=== PATIENT | male | born 1985 | race Caucasian/White ===

== ENCOUNTER 2018-06-10 02:14 | Emergency (ER) | payer OTHER ==
[~2018-06-10] VITALS: Ht 180.3 cm; Wt 52.2 kg
== END 2018-06-10 10:46 | disposition home or self-care (01) ==
LOC: ED 02:14
DX: F32.9 Major depressive disorder, single episode, unspecified (principal)
CPT/HCPCS: 80053; 80176; 81001; 84443; 85025; 99284; G0480

== ENCOUNTER 2019-12-18 21:24 | Inpatient (IN) | payer OTHER ==
[~2019-12-18] VITALS: Ht 180.3 cm; Wt 50.4 kg
--- NOTE | 2019-12-18 23:54 | NUR ---
PT INITIAL ASSESSMENT IS COMPLETED AT THIS TIME. PT DENIES ANY SUICIDAL IDEATIONS AT THIS MOMENT. AFFECT IS FLAT. PT SKIN IS PALE AND COOL, MOTTLING NOTED IN EXTREMITIES. WARM BLANKETS APPLIED. PT STATES IV IS BOTHERING HIM. AREA HAS NO NOTED REDNESS OR SWELLING. FLUSHES AND DRAWS BACK BLOOD WELL. NO VISIBLE REDNESS IN THROAT OR MOUTH, ALTHOUGH PT COMPLAINS OF MILD BURN IN CHEST AND THROAT. HE RATES THE PAIN 4/10 AND DENIES NEED FOR PAIN MEDICAITION AT THIS TIME. PLAN IN PLACE FOR [facility] TO COME IN TO EVALUATE PATIENT. METAL NUMERICAL TOOL PROGRAMMER IN ROOM PROVIDING ONE TO ONE SUPERVISION.
--- NOTE | 2019-12-19 01:00 | NUR ---
PT RESTING WITH EYES CLOSED. BREATHING EVEN AND UNLABORED RR= 17. REMAINS ON SUICIDE PRECAUTIONS.
--- NOTE | 2019-12-19 01:30 | NUR ---
PT HAS INCREASED ORAL SECRETIONS. ORAL SUCTIONING PERFORMED. COMPLAINS THAT PAIN IN THROAT AND CHEST REMAINS AT 5/10
--- NOTE | 2019-12-19 02:05 | NUR ---
PT RESTING. HEART RATE IN THE MID 60S. RR=18. OXYGEN SATURATIONS AT 98 PERCENT ON ROOM AIR. REMAINS ON SUICIDE PRECAUTIONS WITH 1:1 SUPERVISION.
--- NOTE | 2019-12-19 02:19 | NUR ---
HOWIE FROM [facility] IN AT THIS TIME TO EVALUATE PATIENT.
--- NOTE | 2019-12-19 02:44 | NUR ---
PT REPORTED TO Qonf HOWIE THAT HE WAS IN TOO MUCH PAIN AND DISCOMFORT TO BE INTERVIEWED AT THIS TIME. PRN PAIN MEDICATION GIVEN (SEE EMAR).
--- NOTE | 2019-12-19 03:30 | NUR ---
PT REPORTS HIS PAIN HAS DECREASED TO A 4/10. APPEARS MORE COMFORTABLE. BREATHING EVEN AND UNLABORED. NO STATED NEEDS AT THIS TIME.
--- NOTE | 2019-12-19 04:30 | NUR ---
ASSESSMENT COMPLETED. PT DENIES NEED FOR PAIN MEDICATION. IV FLUIDS CONTINUE TO INFUSE. NO REDNESS OR IRRIATION AT INFUSION SITE. PT DENIES ANY FURTHER NEEDS AT THIS TIME. REMAINS ON 1:1 SUICIDE PRECAUTIONS.
--- NOTE | 2019-12-19 05:28 | NUR ---
PT ATTEMPTED TO VOID BUT WAS UNSUCCESSFUL. BLADDER SCAN SHOWED 267 MLS OF URINE IN BLADDER. WILL REASSESS IN AN HOUR.
--- NOTE | 2019-12-19 05:30 | NUR ---
PT APPEARS MORE ALERT AND ORIENTED THAN EARLIER IN THE SHIFT, ANSWERING QUESTIONS IN FULL SENTENCES. DENIES NEED FOR PAIN MEDICATION AT THIS TIME.
--- NOTE | 2019-12-19 07:15 | NUR ---
THIS RN 1:1 WITH PT. PT LYING ON BACK IN BED APPEARS TO BE SLEEPING. EYES CLOSED, RESP EVEN AND UNLABORED.
--- NOTE | 2019-12-19 07:37 | NUR ---
PATIENT RESTING IN BED UPON INITIAL ASSESSMENT. PT STATES HE FEELS A LITTLE BETTER OVERALL. PT REMAINS WITH 1:1 STAFF IN ROOM AT ALL TIMES DUE TO SUICIDE RISK. RN DELIVERY HERE TO TAKE PATIENT FOR EGD. PT UP TO BATHROOM TO VOID FIRST. PT WITHDRAWN. STEADY ON FEET. LR HANGING ON STRAIGHT TUBING. CONTINUE TO MONITOR.
--- NOTE | 2019-12-19 07:45 | NUR ---
PATIENT TAKEN FOR EGD AT 0740.
--- NOTE | 2019-12-19 08:29 | NUR ---
PATIENT BROUGHT BACK TO ROOM AND ABLE TO SCOOT SELF ONTO CCU BED. PT REMAINS ON ROOM AIR. PT STATES HE IS HAVING PAIN AT THIS TIME. IVF TO BE SWITCHE TO D5 LR WITH 20 KCL. PATIENT WILL REMAIN A 1:1 AT THIS TIME.
--- NOTE | 2019-12-19 09:16 | NUR ---
PATIENT RESTING AT THIS TIME. PATIENT STATES HE IS HAVING PAIN IN HIS THROAT BUT DENIES WANTING ANY PAIN MEDICATION AT THIS TIME. DR. DO APPROVED PATIENT TO HAVE CLEAR LIQUIDS. PT INFORMED OF THIS BUT DENIES WANTING ANYTHIGN TO DRINK AT THIS TIME. CONTINUE TO MONITOR. PT REMAINS A 1:1 UNTIL [facility] RE-EVALUATES PATIENT.
--- NOTE | 2019-12-19 09:18 | NUR ---
DR. DAMON IN ROOM TO SEE PATIENT AT THIS TIME.
--- NOTE | 2019-12-19 09:37 | NUR ---
PHONE CALL APPROVED BY DR. DAMON. PT TALKING ON THE PHONE WITH HIS MOM. THIS RN PRESENT.
--- NOTE | 2019-12-19 09:46 | CONS ---
[facility] [address], [place] [address] Signed DATE OF CONSULTATION: 12/18/2019 TIME: 10:30 p.m. CONSULTING PHYSICIAN: Jose Antonio Do MD. REQUESTING PHYSICIAN: Dr. Elise. PROBLEM: Caustic ingestion, suicide attempt. HISTORY OF PRESENT ILLNESS: This 34-year-old white man presented to the emergency room having reported to swallow at least one glass of "draino" approximately 9:00 p.m. It is now 10:30 p.m. His initial evaluation by Dr. Elise showed him to have minimal hypersalivation, no sign of respiratory distress and no significant pain. It is anticipated he would be admitted by Dr. Shannon for further monitoring and consideration was made for endoscopy within 12 hours of ingestion. At present, the patient denies any shortness of breath or chest pain. He has mild epigastric pain. He was noted to have regurgitated the lye initially. Initial measure in the emergency room apparently included the ingestion of a glass of milk with gargling and spit out. The patient does have prior psychologic disturbance with attempted suicide from what he briefly tells me; this was not locally, but rather in [place]. It was not a caustic ingestion from what I gather. He said to have had admission to the hospital about 2 years ago for suicidal ideation. Review of the archived electronic record of that admission was ultimately accomplished and noted to be June 10, 2018, where he had felt suicidal. He was described at times having a "severe depressive episode." At that time, he suggested he had an inclination to buy a cleaning agent and drink it. He had been newly transplanted from [place] at that time. At that time, he had reported "lack of purpose." He currently lives with his mother. He does not work. He was evaluated by [facility] counselors and discharged with psychiatric followup. He is on no psychiatric medications. Electronically Signed By: JOSE ANTONIO DO MD 12/19/19 0946 PATIENT NAME: SANAM TELLEZ CONSULTATION DATE OF : 87 REPORT #: [id number] PHYSICIAN: JOSE ANTONIO DO MD PCP: NO PRIMARY CARE PHYSICIAN REPORT IS CONFIDENTIAL AND NOT TO BE RELEASED WITHOUT AUTHORIZATION [facility] [address] [place] [id number] Signed His evaluation has included a chest x-ray which shows no sign of pneumomediastinum or any evidence of infiltrate or pneumonitis. His white count is noted to be 9.1, hematocrit is 42.2, platelets 154,000. Chem profile is essentially normal, creatinine of 0.82. Liver enzymes are normal. TSH 0.44. Toxicology shows no illicit drugs and alcohol was negative. Urinalysis was normal. PHYSICAL EXAMINATION: GENERAL: This is a very thin white man with long hair. He has a bit of a mustache and minimal see. He does not appear agitated or psychotic at this time. HEENT: Trachea is midline. There is no crepitus. He appears not to have any regurgitation or hypersalivation. He has a significant pectus excavatum. CHEST: Shows normal respiratory excursion without cough. Chest x-ray was reviewed, completely normal. He has significant pectus excavatum. ABDOMEN: Mildly tender in the epigastric area, but not much and he does not have abdominal distention. EXTREMITIES: Show no clubbing, cyanosis, or edema. VITAL SIGNS: At presentation, pulse of 60, respiratory rate of 25, blood pressure 114/73, temperature is 97.4. ASSESSMENT: The patient is said to have a caustic ingestion of single glass of "Draino." Poison Control was already called prior to my evaluation. Review of recent treatment protocols commit to a plan of observation, maintenance of n.p.o. status, IV fluid administration and endoscopy within 12 hours of ingestion to assess the extent of injury. At present, he has no airway problems, hypersalivation or other issues. He has been given milk apparently to swish and spit as a comfort measure for his oropharynx and so on. I have conferred with Dr. Shannon, who anticipates his admission to the intensive care unit for further monitoring in particular regarding his airway and so forth. The extent of his caustic ingestion can be assessed by endoscopy. He has potential for significant progression of problems, but at present appears to be quite stable. The ongoing liquefactive necrosis that may occur in mucosa and deeper layers of the esophagus and even the stomach and duodenum are notable. It is unclear how much he regurgitated or even actually swallowed of the agent. That remains to be seen. I discussed with him in the presence of Dr. Shannon the risks of bleeding, infection, and perforation related to upper endoscopy. We will use intravenous sedation provided by the lye bath operator so as to minimize movement and provide for safe endoscopy at approximately 8:00 a.m. tomorrow. Electronically Signed By: JOSE ANTONIO DO MD 12/19/19 0946 PATIENT NAME: SANAM TELLEZ CONSULTATION DATE OF : 87 REPORT #: [id number] PHYSICIAN: JOSE ANTONIO DO MD PCP: NO PRIMARY CARE PHYSICIAN REPORT IS CONFIDENTIAL AND NOT TO BE RELEASED WITHOUT AUTHORIZATION [facility] [address] [place] [address] Signed Jose Antonio Do MD /YUDIL /[id number] cc: Dr. Arik Shannon MD Copies: SIMON SHANNON MD ~ Electronically Signed By: JOSE ANTONIO DO MD 12/19/19 0946 PATIENT NAME: SANAM TELLEZ CONSULTATION DATE OF : 87 REPORT #: [id number] PHYSICIAN: JOSE ANTONIO DO MD PCP: NO PRIMARY CARE PHYSICIAN REPORT IS CONFIDENTIAL AND NOT TO BE RELEASED WITHOUT AUTHORIZATION
--- NOTE | 2019-12-19 09:57 | NUR ---
PATIENT DENIES WANTING ANYTHING TO EAT OR DRINK - ALLOWED CLEAR LIQUIDS AT THIS TIME. PT STATES HE DOESN'T EAT MEAT. PT DENIES WANTING TO WATCH TV HE DOESN'T HAVE HIS GLASSES AND CANNOT SEE VERY FAR WITHOUT THEM. PT INSTRUCTED THAT HIS MOTHER COULD BRING THEM IN TO THE VACCINE SPECIALIST IF HE WANTED THEM. PT STATES HE DID GET A HOLD OF HIS MOTHER AND "SHE'S FINE" WAS HIS RESPONSE WHEN ASKING PATIENT HOW HIS MOTHER SEEMED AFTER HEARING THE NEWS OF HIS HOSPITALIZATION. PT AGAIN REMAINS FAIRLY WITHDRAWN FROM VERY MUCH INTERACTION OR SOCIALIZATION. NURSING STAFF REMAINS 1:1 UNTIL [facility] CONSULT. CONTINUE TO MONITOR CLOSELY.
--- NOTE | 2019-12-19 10:12 | NUR ---
PATIENT ASKS IF HE CAN GET UP TO WASH HIS HANDS AT THIS TIME. PT UP AND AMBULATES TO SINK IN ROOM TO WASH HIS HANDS.
--- NOTE | 2019-12-19 11:24 | NUR ---
PATIENT SLEEPING AT THIS TIME. HR IN THE 50s. SP02 97% ON ROOM AIR. PT REMAINS A 1:1 DIRECT VISUALIZATION AT THIS TIME.
--- NOTE | 2019-12-19 12:00 | NUR ---
PATIENT CONTINUES TO REST AT THIS TIME AND APPEARS IN NO ACUTE DISTRESS. WHEN PATIENT AWAKE NEXT, WILL REEVALUATE IF PATIENT WOULD LIKE ANY CLEAR LIQUIDS.
--- NOTE | 2019-12-19 12:28 | NUR ---
PO[facility] CONTROL CALLED TO CHECK UP ON PATIENT. NO FURTHER RECOMMENDATIONS MADE AT THIS TIME. PT RESTING. CLEAR LIQUID TRAY ORDERED FOR PATIENT AND BROUGHT INTO ROOM.
--- NOTE | 2019-12-19 12:35 | NUR ---
PATIENT UP TO BATHROOM TO VOID. PT WASHES HANDS BEFORE AND AFTER HE VOIDS.
--- NOTE | 2019-12-19 12:40 | NUR ---
PATIENT REPORTS THAT THE JUICE AND WATER IS "FINE" AND DENIES IT BURNING HIS THROAT AT ALL. PT NOW BACK IN BED.
--- NOTE | 2019-12-19 13:03 | NUR ---
DR. DAMON IN ROOM TO TALK WITH PATIENT. PATIENT WILL MOVE OVER TO ROOM 111 WITHOUT TELEMETRY. PT DENIES FURTHER NEEDS AT THIS TIME.
--- NOTE | 2019-12-19 13:09 | NUR ---
PATIENT ASKING WHEN HE WILL BE MOVING TO ANOTHER ROOM. PT INFORMED THAT THIS WILL BE IN THE NEXT 15-20 MINUTES. PT DENIES ANY FURTHER NEEDS.
--- NOTE | 2019-12-19 14:05 | NUR ---
PT TRANSFERRED TO MED\SURG, AMB WITH THIS RN PRESENT AT 1330. PT REQUESTED TO GET IN SHOWER. PT SHOWERED WITH MINIMAL ASSIST. BACK TO BED NOW, REFUSED OFFER FOR DRINK OF JUICE OR WATER OR OTHER NEEDS AT THIS TIME. GIVEN WARM BLANKET. CALL LIGHT WITHIN REACH. BED ALARM ON. PT REMAINS 1:1 OBSERVATION FOR SUICIDE PRECAUTION. THIS RN AT BEDSIDE.
--- NOTE | 2019-12-19 14:24 | NUR ---
PT LYING IN BED APPEARS TO BE SLEEPING AT THIS TIME. EYES CLOSED, RESP EVEN AND UNLABORED.
--- NOTE | 2019-12-19 15:12 | NUR ---
PT AWOKE FROM REST, NOTICED HIM PLAYING WITH IV TUBING. ASKED PT IF HE NEEDED ANYTHING AND HE STATED THAT HE NEEDED TO USE THE RESTROOM. PT SBA TO RESTROOM, WASHED HIS HANDS BEFORE VOIDING AND THEN AGAIN TWICE AFTER USING THE URINAL. PT BACK TO BED, LYING IN BED QUIETLY. DOESN'T CONVERSE MUCH, VERY FLAT AFFECT. PT REMAINS 1:1 FOR SUICIDE PRECAUTIONS.
--- NOTE | 2019-12-19 16:22 | NUR ---
PT APPEARS TO BE SLEEPING. EYES CLOSED, RESP EVEN UNLABORED. BED ALARM ON. 1:1 STATUS.
--- NOTE | 2019-12-19 17:29 | NUR ---
PT LYING QUIETLY AWAKE IN BED. DENIES PAIN OR OTHER NEEDS OR CONCERNS AT THIS TIME. THIS RN 1:1 WITH PT FOR SUICIDE WATCH.
--- NOTE | 2019-12-19 18:06 | NUR ---
PT REQUESTED "SOMETHING FOR A HEADACHE". DENIES WANTING DILAUDID. RECIEVED ORDER FOR PRN TYLENOL FROM DR. DAMON. ADMINISTERED AT THIS TIME. PT HAD NO DIFFICULTY SWALLOWING PILLS AND IS JAILENE CLEAR LIQUIDS WELL. 1:1
--- NOTE | 2019-12-19 19:45 | NUR ---
BEDSIDE REPORT RECEIVED FROM KWAN BELLA. pt RESTING IN BED AWAKE. IVF INFUSING WNL ORDERED. LEVER OPERATOR SHAWNEE IN ROOM FOR 1:1 MONITORING ORDERED.
--- NOTE | 2019-12-19 20:51 | NUR ---
VITALS AND I&OS DONE AND CHARTED, HELPED PT TO THE BATHROOM AND BACK TO BED. BEDSIDE TABLE AND CALL LIGHT IN REACH. PT NEEDS NOTHING AT THIS TIME.
--- NOTE | 2019-12-19 22:04 | NUR ---
SRIDEVI SHAWNEE IN ROOM FOR 1:1 MONITORING. pt ASSESSMENT COMPLETE. ALERT AND ORIENTED TO ALL. DENIES SUICIDAL IDEATIONS "NOT RIGHT NOW". DENIES PAIN AT THIS TIME. IV FLUSHED, INFUSING WNL ORDERED. ENSURE PROVIDED. pt DENIES ADDITIONAL NEEDS. THIS RN IN ROOM FOR 1:1 MONITORING.
--- NOTE | 2019-12-19 22:32 | EKG ---
[facility] [address] [facility] [place] [address] Signed Normal sinus rhythm with sinus arrhythmia Possible Left atrial enlargement Rightward axis Pulmonary disease pattern Incomplete right bundle branch block Nonspecific ST abnormality Abnormal ECG No previous ECGs available Confirmed by SIMON DAMON MD ([id number]) on 12/19/2019 10:32:17 PM Electronically Signed By: SIMON DAMON MD 12/19/192231 PATIENT NAME: SANAM TELLEZ Electrocardiogram DATE OF : 87 PHYSICIAN: SIMON DAMON MD REPORT #: [id number] REPORT IS CONFIDENTIAL AND NOT TO BE RELEASED WITHOUT AUTHORIZATION
--- NOTE | 2019-12-20 02:10 | NUR ---
pt RESTING IN BED WITH EYES CLOSED, IVF INFUSING WNL ORDERED. TARP REPAIRER LILIAN IN ROOM FOR CLOSE 1:1 MONITORING ORDERED.
--- NOTE | 2019-12-20 03:45 | NUR ---
SBA TO RESTROOM FOR VOID AND BACK TO BED. ASSESSMENT COMPLETE. C/O GAXIOLA, DENIES NEED FOR PRN MEDICATION. REQUESTING TO SLEEP. IVF INFUSING WNL ORDERED. 1:1 MONITORING FOR pt SAFETY.
--- NOTE | 2019-12-20 05:48 | NUR ---
pt RESTED WELL THIS SHIFT. 1:1 MONITORING ORDERED THROUGHOUT SHIFT. pt DENIES SUICIDAL IDEATIONS TO RN THIS SHIFT. IVF INFUSING WNL ORDERED. SBA TO RESTROOM, QS VOIDS.
--- NOTE | 2019-12-20 07:40 | NUR ---
RECIEVED BEDSIDE REPORT FROM KHOI BOWENS. PT LYING IN BED WITH EYES CLOSED, RESP EVEN AND UNLABORED. IV INFUSING WNL. PT REMAINS ON 1:1 OBSERVATION FOR SUICIDE WATCH.
--- NOTE | 2019-12-20 08:04 | NUR ---
PT NOTED TO BE AWAKE AND MOVING AROUND IN BED. PT REPORTS HE NEEDS TO USE THE BATHROOM. SBA TO RESTROOM. PT WASHES HIS HANDS MULTIPLE TIMES BOTH BEFORE AND AFTER VOIDING. AMB TO RECLINER, CURRENTLY SITTING UP AWAKE. ASSISTED PT TO ORDER BREAKFAST HE REPORTS HE IS FEELING HUNGRY. DENIES PAIN OR NAUSEA. DENIES SUICIDAL IDEATION OR OTHER CONCERNS AT THIS TIME. PT DRINKING WATER. THIS RN PRESENT AT BEDSIDE FOR 1:1.
--- NOTE | 2019-12-20 08:45 | NUR ---
PT ATE 100% OF BREAKFAST. HAD OATMEAL, MANDARIN ORANGES, YOGURT, MILK, AND JUICE. JAILENE WELL. PT DENIES NAUSEA OR STOMACH PAIN. SITTING UP IN RECLINER. THIS RN AT BEDSIDE.
--- NOTE | 2019-12-20 08:52 | NUR ---
NOTED IV LEAKING. FLUSHES EASILY WITHOUT PAIN. TOOK DOWN DRESSING AND SANITZED SITE WITH ALCOHOL SWABS. REDRESSED SITE WITH OPSITE. NO FURTHER LEAKING NOTED AT THIS TIME.
--- NOTE | 2019-12-20 09:58 | NUR ---
TALKED WITH PT WITH ABOUT IF IT WAS OK FOR HIS MOTHER TO CHAT WITH SOMEONE ABOUT HIM, HE STATED NO HE WANTED TO BE THE ONE TO TALK AND SHE DIDN'T NEED TO TALK WITH ANYONE. PT KWAN BELLA WAS IN THE ROOM FOR THIS. WE EXPLAINED THAT IT WOULD BE FOR ATTEMPTS TO GET YOU THE HELP YOU NEED AND HELP YOU. PT AGAIN STATED NO.
--- NOTE | 2019-12-20 10:01 | OR ---
[facility] [address] [place], [place] [address] Signed DATE OF OPERATION: 12/19/2019 SURGEON: Jose Antonio Do MD PREOPERATIVE DIAGNOSIS: Caustic ingestion (draino) 9 p.m. last night (current time 08:30). POSTOPERATIVE DIAGNOSES: 1. Moderate caustic injury of stomach, mild caustic injury of esophagus. No evidence of injury to duodenum. 2. Mild hypopharyngeal caustic injury. 3. Esophagogastroduodenoscopy with biopsy. ANESTHESIA: Intravenous sedation, propofol infusion; Jose Antonio Brooks CRNA. INDICATION: This 34-year-old white man attempted suicide last night approximately 9 p.m. by drinking at least one glass of "draino." His initial evaluation showed to have minimal hypersalivation. No sign of respiratory distress and no significant pain. He was evaluated by Dr. Shannon anticipating observation and management. He had normal chest x-ray and lab studies otherwise. The patient has had suicidal ideation in 2018, presenting to the emergency room with an idea to ingest caustic solution at that time though he did not do so then. The patient has been observed, showing no sign of airway compromise, development of sepsis or other issue and no hypersalivation. He is here to undergo upper endoscopy within 12 hours of his ingestion to assess mucosal injury. He understands the risks of bleeding, infection, and perforation related to upper endoscopy and wished to proceed. FINDINGS: IV sedation was maintained by propofol infusional technique. The patient had mild inflammatory changes of the hypopharynx and no evidence of cord injury though vallecula was not edematous, but minimally inflamed. There was a superficial exudative type injury of the esophagus most dominantly in the distal portion. He had a small hiatal hernia. Moderate caustic injury was noted of the midportion of the stomach, however, including the area of the antrum. The duodenum was entirely normal. Superficial biopsies were obtained of the stomach and esophagus as well as a CLOtest biopsy. CLOtest was negative 20 minutes postprocedure. Electronically Signed By: JOSE ANTONIO DO MD 12/20/19 1001 PATIENT NAME: SANAM TELLEZ OPERATIVE REPORT DATE OF : 87 REPORT #: [id number] PHYSICIAN: JOSE ANTONIO DO MD PCP: NO PRIMARY CARE PHYSICIAN REPORT IS CONFIDENTIAL AND NOT TO BE RELEASED WITHOUT AUTHORIZATION [facility] [address] [place], [place] [address] Signed DESCRIPTION OF PROCEDURE: The patient was brought to the endoscopy suite, examined, and found to have no crepitus or other abnormality on physical examination. Bite block was placed, and he was given intravenous sedation with propofol infusional technique with full cardiopulmonary monitoring. The Olympus video upper endoscope was passed gently into the hypopharynx, where there was mild exudative change and minimal erythema. The vallecula and vocal cords were visualized, although the vallecula had a small amount of caustic injury, was not much certainly no ulceration. There was edema. The vocal cords were entirely normal. Scope was gently advanced into the esophagus. A thin membranous inflammatory exudate was noted, passage down the esophagus showed only mild caustic injury. Scope was entered to the stomach where bilious fluid was suctioned free and much more violaceous and thick exudative changes of the mid portion of the stomach was noted on the rugal folds. Scope was advanced to the antrum, which had similar moderate inflammation. No sign of ulcerations or thrombotic changes to suggest full-thickness necrosis in any way. The pylorus was normal. Scope was passed through the end of the duodenum, which was entirely normal. Scope was withdrawn to the stomach and retroflexed view undertaken, showed a small hiatal hernia. Under the circumstances, biopsy of the midportion of stomach was advisable, which was accomplished minimally and a CLOtest biopsy taken as well. Scope was withdrawn to the distal esophagus. Further examination showed only mild caustic injury. Superficial biopsy was obtained. The scope was carefully withdrawn. Remaining esophagus showed no unexpected findings. Careful inspection of hypopharynx once again as well as the soft palate undertaken, showing only mild inflammation. The scope was removed. The patient was taken to recovery room in good condition. CONCLUDING DIAGNOSIS: Moderate gastric injury from caustic ingestion and mild esophageal and hypopharyngeal inflammation. PLAN: Maintenance n.p.o. for 48 hours would be appropriate for the time being. We will review further care parameters with Dr. Shannon. Jose Antonio Do MD /YUDIL /[id number] Electronically Signed By: JOSE ANTONIO DO MD 12/20/19 1001 PATIENT NAME: SANAM TELLEZ OPERATIVE REPORT DATE OF : 87 REPORT #: [id number] PHYSICIAN: JOSE ANTONIO DO MD PCP: NO PRIMARY CARE PHYSICIAN REPORT IS CONFIDENTIAL AND NOT TO BE RELEASED WITHOUT AUTHORIZATION [facility] [address] [place] [id number] Signed cc: Simon Shannon MD Copies: SIMON SHANNON MD ~ Electronically Signed By: JOSE ANTONIO DO MD 12/20/19 1001 PATIENT NAME: SANAM TELLEZ OPERATIVE REPORT DATE OF : 87 REPORT #: [id number] PHYSICIAN: JOSE ANTONIO DO MD PCP: NO PRIMARY CARE PHYSICIAN REPORT IS CONFIDENTIAL AND NOT TO BE RELEASED WITHOUT AUTHORIZATION
--- NOTE | 2019-12-20 10:10 | NUR ---
PT REQUESTED TO GET UP TO RESTROOM TO BRUSH TEETH. SBA TO RESTROOM AND INDPENDENTLY COMPLETED AM CARES INCLUDING BRUSHING TEETH WITH THIS RN PRESENT FOR 1:1 OBSERVATION. AMB BACK TO RECLINER.
--- NOTE | 2019-12-20 10:38 | NUR ---
SPOKE WITH RUBY FROM POISON CONTROL. UPDATED HER ON PT CONDITION AND PLANS FOR FOLLOW UP AFTER DISCHARGE. SHE STATED HIS CASE WOULD BE CLOSED AT THIS TIME.
--- NOTE | 2019-12-20 11:57 | NUR ---
PT'S LUNCH ARRIVED. PT SBA TO RESTROOM TO VOID AND WASH HANDS MULTIPLE TIMES. AMB BACK TO RECLINER AND EATING LUNCH INDEPENDENTLY, JAILENE WELL. THIS RN AT BEDSIDE.
--- NOTE | 2019-12-20 12:09 | NUR ---
PT SITTING IN CHAIR, ALERT, DOESNOT CHANGE POSITION OR FACIAL EXPRESSION DURING VISIT. FAIRLY FLAT AFFECT, VERY BRIEF RESPONSES AND LITTLE INPUT IN CONVERSATION. PT STATED HE DID NOT NEED OR WANT ANYTHING. GAVE BLESSING
--- NOTE | 2019-12-20 13:30 | NUR ---
PT DRESSED IN PERSONAL CLOTHING INDEPENDENTLY. IV DC'D WNL. PT GIVEN DC INSTRUCTIONS, VERBALIZED UNDERSTANDING. WAITING FOR MOM FOR RIDE.
== END 2019-12-20 13:55 | disposition home or self-care (01) | DRG 918 ==
LOC: ED 21:24 → MS 22:36 → CCU 22:36 → MS 12-19 13:30
PROVIDERS: Surgery; ADMIT Internal Medicine
PROC: 0DB68ZX Excision of Stomach, Via Natural or Artificial Opening Endoscopic, Diagnostic (ICD-10-PCS; 2019-12-19)
PROC: 0DB58ZX Excision of Esophagus, Via Natural or Artificial Opening Endoscopic, Diagnostic (ICD-10-PCS; principal; 2019-12-19 08:00)
DX: T54.3X2A Toxic effect of corrosive alkalis and alkali-like substances, intentional self-harm, initial encounter (principal); K22.10 Ulcer of esophagus without bleeding; F84.0 Autistic disorder; K25.9 Gastric ulcer, unspecified as acute or chronic, without hemorrhage or perforation; F32.9 Major depressive disorder, single episode, unspecified; F42.9 Obsessive-compulsive disorder, unspecified
CPT/HCPCS: 36415; 71045; 80048; 80053; 80176; 81001; 84443; 85025; 93005; 93010; 96361; 96374; 99285-25; C9113; G0480; J1170; J2405; J2704; J3480; J7030

== ENCOUNTER 2020-03-16 23:22 | Emergency (ER) | payer OTHER ==
[~2020-03-16] VITALS: Ht 180.3 cm; Wt 50.4 kg
[2020-03-17] MEDS ORDERED: ZOLOFT50 MG PO (03:11)
== END 2020-03-17 03:26 | disposition home or self-care (01) ==
LOC: ED 23:22
DX: F32.9 Major depressive disorder, single episode, unspecified (principal); Z00.8 Encounter for other general examination
CPT/HCPCS: 80053; 80176; 81001; 84443; 85025; 99284; G0480

== ENCOUNTER 2020-07-14 18:26 | Emergency (ER) | payer OTHER ==
[~2020-07-14] VITALS: Ht 180.3 cm; Wt 50.4 kg
[~2020-07-14 18:26] MED LIST: ZOLOFT50 MG PO
--- NOTE | 2020-07-15 15:19 | EKG ---
[facility] [address] [facility] [place] [address] Signed Normal sinus rhythm Left atrial enlargement Rightward axis Incomplete right bundle branch block Possible Anteroseptal infarct , age undetermined Abnormal ECG When compared with ECG of 18-DEC-2019 21:48, Borderline criteria for Anteroseptal infarct are now present QT has lengthened Confirmed by PREET PACK DO ([id number]) on 07/15/2020 11:03:01 AM Electronically Signed By: PREET PACK DO 07/15/20 1519 PATIENT NAME: SANAM TELLEZ Electrocardiogram DATE OF : 87 PHYSICIAN: PREET PACK DO REPORT #: [id number] REPORT IS CONFIDENTIAL AND NOT TO BE RELEASED WITHOUT AUTHORIZATION
== END 2020-07-15 02:01 | disposition short-term general hospital (02) ==
LOC: ED 18:26
DX: T54.3X2A Toxic effect of corrosive alkalis and alkali-like substances, intentional self-harm, initial encounter (principal); F32.9 Major depressive disorder, single episode, unspecified; Z79.899 Other long term (current) drug therapy
CPT/HCPCS: 36415; 71260; 74177; 80053; 80176; 81001; 82150; 82550; 83690; 84443; 85025; 86850; 86900; 86901; 93005; 93010; 99285-25; G0480; J7121; Q9967